=== PATIENT | male | born 1980 | race African-American/Black ===

== ENCOUNTER 2016-06-01 15:13 | Inpatient (IN) | payer SELFPAY ==
[~2016-06-01] VITALS: Ht 180.3 cm; Wt 70.0 kg
[~2016-06-01 15:13] MED LIST: BACT800T5 PO; IBUP-232 PO
[2016-06-01] MEDS ORDERED: SODIUM CHLOR 0.9% 1000 ML INJ 1,000 ML IV SCH (15:20)
[2016-06-01] MEDS ORDERED: SODIUM CHLORIDE 0.9% FLUSH 5 ML FLUSH IVF PRN (15:30)
[2016-06-01] MEDS ORDERED: ONDANSETRON HCL 4 MG/2 ML VIAL IVP ONE (15:30)
[2016-06-01] MEDS ORDERED: MORPHINE SULFATE 4 MG/ML INJ IV PUSH ONE (15:30)
--- NOTE | 2016-06-01 15:31 | PD ---
HPI . Syncope Chief Complaint: Syncope Time Seen by Provider: 15:14 Travel History International Travel<30 days: No Contact w/Intl Traveler<30days: No History of Present Illness HPI Patient presents stating that he passed out earlier today. He states that the shower and was using a heating pad on his left flank and the next thing he knew he was here. Patient reports a several month long history of left flank pain. He states that he has a stent in his left ureter that has been there for a couple months. He reports a 15 pound weight loss over the last couple of weeks, intermittent nausea and vomiting, occasional diarrhea and persistent left flank pain. He reports diaphoresis. He reports poor appetite. PFSH Past Medical History Asthma: Yes ( A CHILD) Cancer: No Cardiovascular Problems: No Diminished Hearing: No Endocrine: No Genitourinary: Yes (KIDNEY STONES) Immune Disorder: No Kidney Stones: Yes Musculoskeletal: No Neurologic: No Psychiatric: No Reproductive: No Respiratory: No Radiation Therapy: No Past Surgical History Body Medical Devices: Left renal stent. Genitourinary Surgery: Yes (left kidney stent Mar 2016) Other Surgery: Yes (kidney stones ) Social History Alcohol Use: Yes (SOCIALLY) Tobacco Use: No Substance Use: No Allergies-Medications (Allergen,Severity, Reaction): Coded Allergies: No Known Allergies (Verified , 05/21/16) Reported Meds & Prescriptions Reported Meds & Active Scripts Active Bactrim DS (Sulfamethoxazole-Trimethoprim) 800-160 Mg Tab 1 Tab PO BID Ibuprofen 600 Mg Tab 600 Mg PO Q6H PRN Review of Systems Except as stated in HPI: all other systems reviewed are Neg General / Constitutional: Positive: Other (diaphoresis, 15 pound weight loss.) HENT: Positive: Lightheadedness Cardiovascular: Positive: Syncope, No: Chest Pain or Discomfort Respiratory: No: Shortness of Breath Gastrointestinal: Positive: Nausea, Vomiting, Diarrhea, Abdominal Pain, Loss of Appetite Genitourinary: Positive: Dysuria, Flank Pain, Other (penile pain) Physical Exam Narrative GENERAL: Patient is lying on the stretcher on his right side rolled up in the position. He was acting as if he were hard to arouse. However, he subsequently took a cell phone call while I was examining him and carried on a conversation without any apparent difficulty. SKIN: Warm and dry. HEAD: Atraumatic. Normocephalic. EYES: Pupils equal and round. ENT: No nasal bleeding or discharge. Mucous membranes pink and moist. NECK: Trachea midline. CARDIOVASCULAR: Regular rate and rhythm. He does not seem to be tachycardic. RESPIRATORY: No accessory muscle use. His lungs are clear with full air movement throughout. GASTROINTESTINAL: Abdomen soft. nondistended. He reports diffuse tenderness to palpation. I am unable to elicit any CVA tenderness. MUSCULOSKELETAL: No obvious deformities. No edema. NEUROLOGICAL: Awake and alert. No obvious cranial nerve deficits. Motor grossly within normal limits. Normal speech. PSYCHIATRIC: Appropriate mood and affect; insight and judgment normal. Data Data Last Documented VS Vital Signs Date Time Temp Pulse Resp B/P Pulse Ox O2 Delivery O2 Flow Rate FiO2 06/01/16 15:34 98.1 61 16 132/68 100 Orders Complete Blood Count With Diff (06/01/16 15:20) Comprehensive Metabolic Panel (06/01/16 15:20) Lipase (06/01/16 15:20) Lactic Acid (06/01/16 15:20) Urinalysis - C+S If Indicated (06/01/16 15:20) Ct Abd/Pel W/O Iv Contrast (06/01/16 15:20) Iv Access Insert/Monitor (06/01/16 15:20) Ecg Monitoring (06/01/16 15:20) Oximetry (06/01/16 15:20) Morphine Inj (Morphine Inj) (06/01/16 15:30) Ondansetron Inj (Zofran Inj) (06/01/16 15:30) Sodium Chlor 0.9% 1000 Ml Inj (Ns 1000 M (06/01/16 15:20) Sodium Chloride 0.9% Flush (Ns Flush) (06/01/16 15:30) Hydromorphone Pf Inj (Dilaudid Pf Inj) (06/01/16 17:45) Sodium Chlor 0.9% 1000 Ml Inj (Ns 1000 M (06/01/16 17:45) Urine Culture (06/01/16 17:42) Urine Culture (06/01/16 18:25) Ceftriaxone Inj (Rocephin Inj) (06/01/16 18:30) Admit Order (Ed Use Only) (06/01/16 18:39) Labs Laboratory Tests Test 06/01/16 06/01/16 15:55 17:42 White Blood Count 9.2 TH/MM3 Red Blood Count 4.59 MIL/MM3 Hemoglobin 14.5 GM/DL Hematocrit 42.9 % Mean Corpuscular Volume 93.6 FL Mean Corpuscular Hemoglobin 31.5 PG Mean Corpuscular Hemoglobin 33.7 % Concent Red Cell Distribution Width 13.6 % Platelet Count 235 TH/MM3 Mean Platelet Volume 8.8 FL Neutrophils (%) (Auto) 84.1 % Lymphocytes (%) (Auto) 10.5 % Monocytes (%) (Auto) 4.5 % Eosinophils (%) (Auto) 0.4 % Basophils (%) (Auto) 0.5 % Neutrophils # (Auto) 7.8 TH/MM3 Lymphocytes # (Auto) 1.0 TH/MM3 Monocytes # (Auto) 0.4 TH/MM3 Eosinophils # (Auto) 0.0 TH/MM3 Basophils # (Auto) 0.0 TH/MM3 CBC Comment DIFF FINAL Differential Comment Sodium Level 139 MEQ/L Potassium Level 4.7 MEQ/L Chloride Level 105 MEQ/L Carbon Dioxide Level 26.5 MEQ/L Anion Gap 8 MEQ/L Blood Urea Nitrogen 18 MG/DL Creatinine 1.21 MG/DL Estimat Glomerular Filtration 83 ML/MIN Rate Random Glucose 95 MG/DL Lactic Acid Level 1.1 mmol/L Calcium Level 10.0 MG/DL Total Bilirubin 1.2 MG/DL Aspartate Amino Transf 9 U/L (AST/SGOT) Alanine Aminotransferase 18 U/L (ALT/SGPT) Alkaline Phosphatase 74 U/L Total Protein 7.8 GM/DL Albumin 4.3 GM/DL Lipase 68 U/L Urine Color YELLOW Urine Turbidity HAZY Urine pH 7.0 Urine Specific [place] 1.014 Urine Protein TRACE mg/dL Urine Glucose (UA) NEG mg/dL Urine Ketones 10 mg/dL Urine Occult Blood MOD Urine Nitrite NEG Urine Bilirubin NEG Urine Urobilinogen LESS THAN 2.0 MG/DL Urine Leukocyte Esterase LARGE Urine RBC /hpf Urine WBC 48 /hpf Urine WBC Clumps RARE Urine Squamous Epithelial <1 /hpf Cells Urine Bacteria RARE /hpf Urine Mucus FEW /lpf Microscopic Urinalysis Comment CULTURE INDICATED MDM Medical Decision Making Medical Screen Exam Complete: Yes Emergency Medical Condition: Yes Medical Record Reviewed: Yes (records reviewed. Patient has been seen here several times in the recent past with issues related to kidney stones. He has a stent in his left ureter. He has failed to follow up with urology for removal of the stent. He was actually admitted to the hospital on for this.. He had plain films done at that time it did not show a stone. He did have tract infection which was treated with Rocephin in the hospital. He was discharged on Cipro.) Differential Diagnosis Differential diagnosis of flank pain includes but is not limited to kidney stone , pyelonephritis, musculoskeletal pain, PE Narrative Course Patient presents with recurrent left flank pain. Today, he reports a prolonged syncopal event. He further reports significant weight loss and inability to keep down food or liquids. He will be given 2 L of fluid while awaiting his workup. 4:20 PM History shows stent in place. He actually has several stones in the stent 3 mm. Furthermore, he has a cluster of stones in the lower pole left kidney. 5:18 PM CBC is normal. Lactic acid is 1.1. 6:26 PM UA is positive for infection. Urine culture is pending. I have ordered Rocephin. I will consult the hospitalist for admission. Diagnosis Primary Impression: UTI (urinary tract infection) Qualified Code: N39.0 - Urinary tract infection without hematuria, site unspecified Additional Impression: Renal calculi Admitting Information Admitting Physician Requests: Admit Patient Instructions: Narcotic given in the ED Condition: Stable Lorelei Thibodeaux MD Jun 01, 2016 15:31
[2016-06-01 15:34] VITALS: BP 132/68; PULSE 61; RESP 16; TEMP 98.1; O2SAT 100
--- NOTE | 2016-06-01 16:09 | RADRPT ---
EXAM DATE/TIME: 06/01/2016 15:38 [facility] COMPARISON: CT ABDOMEN & PELVIS W/O CONTRAST, May 17, 2016, 0:25. INDICATIONS : Persistent left flank pain. ORAL CONTRAST: No oral contrast ingested. RADIATION DOSE: 8.97 CTDIvol (mGy) MEDICAL HISTORY : Renal calculi. SURGICAL HISTORY : Left renal stent. ENCOUNTER: Initial ACUITY: 2 days PAIN SCALE: 7/10 LOCATION: Left flank TECHNIQUE: Volumetric scanning of the abdomen and pelvis was performed. Using automated exposure control and ad justment of the mA and/or kV according to patient size, radiation dose was kept as low as reasonably achievable to obtain optimal diagnostic quality images. FINDINGS: LOWER LUNGS: The visualized lower lungs are clear. LIVER: Homogeneous density without lesion. There is no dilation of the biliary tree. No calcified gallston es. SPLEEN: Normal size without lesion. PANCREAS: Within normal limits. KIDNEYS: There is no mass, stone, or hydronephrosis on the right. Left-sided double J stent in the left colle ting system. There are 3 calculi along the mid stent measuring 2-3 mm seen at L4 level. There is mild prominence of the left collecting system in spite of the stent. There are several clustered calculi lower pole left kidney measuring 2-6 mm in size. ADRENAL GLANDS: Within normal limits. VASCULAR: There is no aortic aneurysm. BOWEL/MESENTERY: The stomach, small bowel, and colon demonstrate no acute abnormality. There is no free intraperitone al air or fluid. ABDOMINAL WALL: Within normal limits. RETROPERITONEUM: There is no lymphadenopathy. BLADDER: No wall thickening or mass. REPRODUCTIVE: Within normal limits. INGUINAL: There is no lymphadenopathy or hernia. MUSCULOSKELETAL: Within normal limits for patient age. CONCLUSION: 1. Mild prominence of the left collecting system even though there is a stent in place. 2. Several calculi seen along the left nephroureteral stent measuring 2-3 mm. 3. Nonobstructing clustered calculi lower pole left kidney measures 2-6 mm in size. 1. Vitor Mcgowan MD on June 01, 2016 at 16:03 Board Certified Radiologist. This report was verified electronically.
[2016-06-01 16:53] LABS: AUTOMATED NEUTROPHIL # 7.8 TH/MM3 (1.8-7.7); BASOPHIL % 0.5 % (0.0-2.0); EOSINOPHIL % 0.4 % (0.0-4.0); HEMATOCRIT 42.9 % (39.0-51.0); HEMO FLAGS DIFF FINAL; LYMPH % 10.5 % (9.0-44.0); MEAN CELL VOLUME 93.6 FL (80.0-100.0); MEAN CORPUSCULAR HEMOGLOBIN 31.5 PG (27.0-34.0); MEAN CORPUSCULAR HGB CONC 33.7 % (32.0-36.0); MONO % 4.5 % (0.0-8.0); NEUT % 84.1 % (16.0-70.0); PLATELET COUNT 235 TH/MM3 (150-450); RED BLOOD COUNT 4.59 MIL/MM3 (4.50-5.90); RED CELL DISTRIBUTION WIDTH 13.6 % (11.6-17.2); WHITE BLOOD COUNT 9.2 TH/MM3 (4.0-11.0)
[2016-06-01 17:26] LABS: ANION GAP 8 MEQ/L (5-15); AST (GOT) 9 U/L (15-37); BICARBONATE 26.5 MEQ/L (21.0-32.0); BLOOD UREA NITROGEN 18 MG/DL (7-18); CHLORIDE 105 MEQ/L (98-107); GLOMERULAR FILTRATION RATE 83 ML/MIN (>89); POTASSIUM 4.7 MEQ/L (3.5-5.1); SODIUM (NA) 139 MEQ/L (136-145)
[2016-06-01 17:32] LABS: ALKALINE PHOSPHATASE 74 U/L (45-117); ALT (GPT) 18 U/L (12-78); TOTAL BILIRUBIN ADULT 1.2 MG/DL (0.2-1.0)
[2016-06-01] MEDS ORDERED: HYDROmorphone HCL PF 2 MG/ML VIAL IV PUSH ONE (17:45)
[2016-06-01] MEDS ORDERED: SODIUM CHLOR 0.9% 1000 ML INJ 1,000 ML IV ONE (17:45)
[2016-06-01 18:18] LABS: BLOOD, URINE MOD (NEG); COMMENT (UR) CULTURE INDICATED; CULTURE IF INDICATED CULTURE INDICATED; GLUCOSE,URINE NEG (NEG); KETONE, URINE 10 mg/dL (NEG); MUCUS URINE FEW /lpf (OCC); NITRITE,URINE NEG (NEG); SQUAMOUS EPITHELIAL CELL URINE <1 /hpf (0-5); URINE COLOR YELLOW (YELLW/STRAW)
[2016-06-01 18:22] LABS: BACTERIA, URINE RARE /hpf
[2016-06-01] MEDS ORDERED: cefTRIAXone INJ 1,000 MG in SODIUM CHLORIDE 0.9% INJ 100 ML IV ONE (18:30)
[2016-06-01] MEDS ORDERED: MAGNESIUM HYDROXIDE SUSP 30 ML CUP PO PRN (18:45)
[2016-06-01] MEDS ORDERED: oxyCODONE/ACETAMINOPHEN 5 MG/325 MG TAB PO PRN (18:45)
[2016-06-01] MEDS ORDERED: SODIUM CHLORIDE 0.9% FLUSH 5 ML FLUSH FLUSH PRN (18:45)
[2016-06-01] MEDS ORDERED: NALOXONE HCL 0.4 MG/ML AMP IV PRN (18:45)
[2016-06-01] MEDS ORDERED: ACETAMINOPHEN 325 MG TAB PO PRN (18:45)
[2016-06-01] MEDS ORDERED: HYDROmorphone HCL PF 2 MG/ML VIAL IV PUSH PRN (18:45)
[2016-06-01] MEDS ORDERED: KETOROLAC TROMETHAMINE 30 MG/ML (IVP) VIAL IV PUSH ONE (19:30)
--- NOTE | 2016-06-01 19:53 | HHI.HP ---
HPI Service [facility] Hospitalists Primary Care Physician No Primary Care Physician Admission Diagnosis polynephritis and renal calculi Diagnoses: Chief Complaint: flank pain , syncope Travel History International Travel<30 Days: No Contact w/Intl Traveler <30 Da: No Traveled to Known Affected Are: No History of Present Illness 35-year-old male status post stent in the left kidney around 03/2016 for recurrent kidney stones who presents with intractable nausea, pain, burning on urination for the last 2-3 days. The patient had a left stent placed for kidney stone at [place]; he was to follow-up with a urologist, but he has not done this. Around one week ago, he was having similar symptoms as today. He was seen at the [facility]. He was given Macrobid and ibuprofen. Additionally, a mandatory referral was placed for the patient to follow with a urologist. He was unable to do this. He has not finished his Macrobid medication. Since last week, he has been "feeling bad". He complains of stomach pain, nausea, vomiting, left-sided flank pain, burning on urination. He states the pain is "sharp 10 out of 10"in his belly. Does have left flank pain. Patient experienced prolonged syncopal episode today and came to the ED for further eval. Review of Systems Constitutional: DENIES: Fever, Chills, Change in appetite Endocrine: DENIES: Heat/cold intolerance Eyes: DENIES: Blurred vision, Eye pain Ears, nose, mouth, throat: DENIES: Tinnitus, Hearing loss, Vertigo, Nasal discharge, Oral lesions, Throat pain, Hoarseness, Ear Pain, Running Nose, Epistaxis, Sinus Pain, Toothache, Odynophagia Respiratory: DENIES: Apneas, Cough, Snoring, Wheezing, Hemoptysis, Sputum production, Shortness of breath Cardiovascular: DENIES: Chest pain, Palpitations, Syncope, Dyspnea on Exertion , PND, Lower Extremity Edema, Orthopnea, Claudication Gastrointestinal: DENIES: Abdominal pain, Black stools, Bloody stools, Constipation, Diarrhea, Nausea, Vomiting, Difficulty Swallowing, Anorexia Genitourinary: COMPLAINS OF: Urgency, Dysuria Musculoskeletal: DENIES: Joint pain Integumentary: DENIES: Rash Neurologic: DENIES: Abnormal gait, Headache, Localized weakness, Paresthesias, Seizures, Speech Problems, Tremor, Poor Balance Psychiatric: DENIES: Anxiety, Depression Past Family Social History Past Medical History Kidney stones Past Surgical History Kidney stent on left Reported Medications Last Impressions Abdomen/Pelvis CT 06/01/16 1520 Signed Impressions: Service Date/Time: May 15:38 - CONCLUSION: 1. Mild prominence of the left collecting system even though there is a stent in place. 2. Several calculi seen along the left nephroureteral stent measuring 2-3 mm. 3. Nonobstructing clustered calculi lower pole left kidney measures 2-6 mm in size. 1. Vitor Mcgowan MD Allergies: Coded Allergies: No Known Allergies (Verified , 05/21/16) Family History Adopted Social History Tobacco: never Marijuana: almost daily Alcohol: none Other illicit drugs: none Physical Exam Vital Signs Vital Signs Date Time Temp Pulse Resp B/P Pulse Ox O2 Delivery O2 Flow Rate FiO2 06/01/16 15:34 98.1 61 16 132/68 100 Physical Exam GENERAL: This is a well-nourished, well-developed patient, in no apparent distress. SKIN: No rashes, ecchymoses or lesions. Cool and dry. HEAD: Atraumatic. Normocephalic. No temporal or scalp tenderness. EYES: Pupils equal round and reactive. Extraocular motions intact. No scleral icterus. No injection or drainage. ENT: Nose without bleeding, purulent drainage or septal hematoma. Throat without erythema, tonsillar hypertrophy or exudate. Uvula midline. Airway patent. NECK: Trachea midline. No JVD or lymphadenopathy. Supple, nontender, no meningeal signs. CARDIOVASCULAR: Regular rate and rhythm without murmurs, gallops, or rubs. RESPIRATORY: Clear to auscultation. Breath sounds equal bilaterally. No wheezes , rales, or rhonchi. GASTROINTESTINAL: Abdomen soft, tender over the lower quadrant, nondistended. No hepato-splenomegaly, or palpable masses. No guarding. MUSCULOSKELETAL: Extremities without clubbing, cyanosis, or edema. No joint tenderness, effusion, or edema noted. No calf tenderness. Negative Homans sign bilaterally. NEUROLOGICAL: Awake and alert. Cranial nerves II through XII intact. Motor and sensory grossly within normal limits. Five out of 5 muscle strength in all muscle groups. Normal speech. Laboratory Laboratory Tests Test 06/01/16 06/01/16 15:55 17:42 White Blood Count 9.2 Red Blood Count 4.59 Hemoglobin 14.5 Hematocrit 42.9 Mean Corpuscular Volume 93.6 Mean Corpuscular Hemoglobin 31.5 Mean Corpuscular Hemoglobin 33.7 Concent Red Cell Distribution Width 13.6 Platelet Count 235 Mean Platelet Volume 8.8 Neutrophils (%) (Auto) 84.1 Lymphocytes (%) (Auto) 10.5 Monocytes (%) (Auto) 4.5 Eosinophils (%) (Auto) 0.4 Basophils (%) (Auto) 0.5 Neutrophils # (Auto) 7.8 Lymphocytes # (Auto) 1.0 Monocytes # (Auto) 0.4 Eosinophils # (Auto) 0.0 Basophils # (Auto) 0.0 CBC Comment DIFF FINAL Differential Comment Sodium Level 139 Potassium Level 4.7 Chloride Level 105 Carbon Dioxide Level 26.5 Anion Gap 8 Blood Urea Nitrogen 18 Creatinine 1.21 Estimat Glomerular Filtration 83 Rate Random Glucose 95 Lactic Acid Level 1.1 Calcium Level 10.0 Total Bilirubin 1.2 Aspartate Amino Transf 9 (AST/SGOT) Alanine Aminotransferase 18 (ALT/SGPT) Alkaline Phosphatase 74 Total Protein 7.8 Albumin 4.3 Lipase 68 Urine Color YELLOW Urine Turbidity HAZY Urine pH 7.0 Urine Specific [place] 1.014 Urine Protein TRACE Urine Glucose (UA) NEG Urine Ketones 10 Urine Occult Blood MOD Urine Nitrite NEG Urine Bilirubin NEG Urine Urobilinogen LESS THAN 2.0 Urine Leukocyte Esterase LARGE Urine RBC Urine WBC 48 Urine WBC Clumps RARE Urine Squamous Epithelial <1 Cells Urine Bacteria RARE Urine Mucus FEW Microscopic Urinalysis Comment CULTURE INDICATED Date/Time Procedure Status Source Growth 06/01/16 17:42 Urine Culture Received Urine Clean Catch Pending Result Diagram: 06/01/16 1555 06/01/16 1555 Imaging Last Impressions Abdomen/Pelvis CT 06/01/16 1520 Signed Impressions: Service Date/Time: May 15:38 - CONCLUSION: 1. Mild prominence of the left collecting system even though there is a stent in place. 2. Several calculi seen along the left nephroureteral stent measuring 2-3 mm. 3. Nonobstructing clustered calculi lower pole left kidney measures 2-6 mm in size. 1. Vitor Mcgowan MD Assessment and Plan Assessment and Plan 35-year-old with history of stent on the left kidney presents with a urinary tract infection and recurrent flank pain, syncope, nausea/vomiting, weight loss - failure to thrive: UTI (urinary tract infection) UA with signs of UTI. Patient has failed outpatient. He does not currently have any systemic symptoms: No fever, no SIRS criteria. -Cultures pending (likely negative given antibiotic as outpatient) -Start Rocephin 1 g every 24 -IVF -Pain control -Zofran for nausea Recurrent left flank pain Prolonged syncopal event. Failure to thrive with significant weight loss and inability to keep down food or liquids. Nephrolithiasis. Stones in the stent 3 mm. Cluster of stones in the lower pole left kidney. CT abd/pelvis reviewed 1. Mild prominence of the left collecting system even though there is a stent in place. 2. Several calculi seen along the left nephroureteral stent measuring 2-3 mm. 3. Nonobstructing clustered calculi lower pole left kidney measures 2-6 mm in size. IVF Will consult urology Add ensure to diet, consult carbon lamp cleaner Antiemetics, stool softeners/laxatives Pain meds per pain scale DVT ppx SCD/teds Code Status full Discussed Condition With patient,. nurse. ED physician Physician Certification 2 Midnight Certification Type: Admission for Inpatient Services Order for Inpatient Services The services are ordered in accordance with Medicare regulations or non- Medicare payer requirements, as applicable. In the case of services not specified as inpatient-only, they are appropriately provided as inpatient services in accordance with the 2-midnight benchmark. Estimated LOS (days): 3 days is the estimated time the patient will need to remain in the hospital, assuming treatment plan goals are met and no additional complications. Post-Hospital Plan: Home Yojana Harrington MD Jun 01, 2016 19:53
[2016-06-01] MEDS ORDERED: TEMAZEPAM 15 MG CAP PO PRN (21:00)
[2016-06-01] MEDS: SODIUM CHLOR 0.9% 1000 ML INJ 1,000 ML IV SCH (21:34)
[2016-06-01] MEDS: SODIUM CHLORIDE 0.9% FLUSH 5 ML FLUSH FLUSH SCH (21:35)
[2016-06-02] VITALS (10 sets, daily range): BP systolic 93–136; BP diastolic 54–93; PULSE 52–90; RESP 12–18; TEMP 97.3–98.4; O2SAT 94–100
[2016-06-02] MEDS ORDERED: HYDROmorphone HCL 2 MG TAB PO PRN (01:15)
[2016-06-02] MEDS ORDERED: NALOXONE HCL 0.4 MG/ML AMP IV PRN (01:15)
[2016-06-02] MEDS ORDERED: ACETAMINOPHEN/HYDROcodone 325 MG/5 MG TAB PO PRN (01:15)
[2016-06-02] MEDS: HYDROmorphone HCL PF 1 MG/ML VIAL IV PRN ×7 (02:34→22:28)
[2016-06-02] MEDS: SODIUM CHLOR 0.9% 1000 ML INJ 1,000 ML IV SCH ×3 (04:00→20:00)
[2016-06-02] MEDS: HYDROmorphone HCL 2 MG TAB PO PRN ×3 (04:21→17:51)
[2016-06-02 06:16] LABS: AUTOMATED NEUTROPHIL # 3.7 TH/MM3 (1.8-7.7); BASOPHIL # 0.1 TH/MM3 (0-0.2); BASOPHIL % 0.8 % (0.0-2.0); EOSINOPHIL # 0.2 TH/MM3 (0-0.4); EOSINOPHIL % 2.5 % (0.0-4.0); HEMATOCRIT 36.4 % (39.0-51.0); HEMO FLAGS DIFF FINAL; LYMPH % 36.7 % (9.0-44.0); LYMPHOCYTE # 2.7 TH/MM3 (1.0-4.8); MEAN CELL VOLUME 93.7 FL (80.0-100.0); MEAN CORPUSCULAR HEMOGLOBIN 31.3 PG (27.0-34.0); MEAN CORPUSCULAR HGB CONC 33.4 % (32.0-36.0); MONO % 8.7 % (0.0-8.0); NEUT % 51.3 % (16.0-70.0); PLATELET COUNT 205 TH/MM3 (150-450); RED BLOOD COUNT 3.89 MIL/MM3 (4.50-5.90); RED CELL DISTRIBUTION WIDTH 13.3 % (11.6-17.2); WHITE BLOOD COUNT 7.2 TH/MM3 (4.0-11.0)
[2016-06-02 06:35] LABS: BICARBONATE 26.2 MEQ/L (21.0-32.0)
[2016-06-02] MEDS: ONDANSETRON HCL 4 MG/2 ML VIAL IVP PRN ×2 (08:55→19:51)
[2016-06-02] MEDS: SODIUM CHLORIDE 0.9% FLUSH 5 ML FLUSH FLUSH SCH ×2 (09:09→21:00)
[2016-06-02] MEDS: ACETAMINOPHEN/HYDROcodone 325 MG/10 MG TAB PO PRN ×2 (11:25→19:56)
[2016-06-02] MEDS: cefTRIAXone INJ 1,000 MG in SODIUM CHLORIDE 0.9% INJ 100 ML IV SCH (11:25)
--- NOTE | 2016-06-02 11:45 | HHI.PR ---
Subjective Remarks Patient reports that he continues to have a left flank pain. He is voiding okay. No fevers. Objective Vitals Vital Signs Date Time Temp Pulse Resp B/P Pulse Ox O2 Delivery O2 Flow Rate FiO2 06/02/16 08:14 98.4 52 18 122/72 98 06/02/16 03:50 98.2 61 18 129/69 95 06/02/16 02:04 90 12 130/58 98 Room Air 06/02/16 00:32 88 14 128/60 99 Room Air 06/01/16 15:34 98.1 61 16 132/68 100 I/O 06/01/16 06/01/16 06/01/16 06/02/16 06/02/16 06/02/16 07:00 15:00 23:00 07:00 15:00 23:00 Intake Total 240 ml Output Total 100 ml Balance 140 ml Intake Oral 240 ml Output Urine Total 100 ml Result Diagram: 06/02/1652106/02/16521 Objective Remarks GENERAL: This is a well-nourished, well-developed patient, in no apparent distress. CARDIOVASCULAR: Normal rate and regular rhythm without murmurs, gallops, or rubs. RESPIRATORY: Good respiratory efforts. Breath sounds equal and clear to auscultation bilaterally. GASTROINTESTINAL: Abdomen soft, non-tender, non-distended. Normal active bowel sounds : Patient endorsed flank pain. Positive left CVA tenderness. MUSCULOSKELETAL: Extremities without cyanosis, or edema. NEURO: Alert & Oriented x4 to person, place, time, situation. Moves all ext x4 PSYCH: Appropriate mood and affect. A/P Assessment and Plan 35-year-old male with history of nephrolithiasis and stent placement. Failed to follow up with urology outpatient. He presented with recurrent flank pain, possible UTI. Possible complicated UTI: Abnormal urinalysis in the setting of ureteral stent and nephrolithiasis. - Continue Rocephin. Follow urine cultures. Nephrolithiasis: Stones in the stent 3 mm. Cluster of stones in the lower pole left kidney. Patient apparently had stent placement about a month ago in [place]. He did not follow up outpatient. He presented to the emergency room here about a week ago and was referred again to outpatient urology but he did not follow up. -Urology consulted for assistance - Continue supportive care with IV fluid. Pain control. Antiemetics as needed. GI prophylaxis: Stool softener PRN constipation. DVT PPx: SCDs. Katey Adler MD Jun 02, 2016 11:45
--- NOTE | 2016-06-02 17:10 | PD.CONS ---
HPI Service Urology Consult Requested By Reason for Consult Nephroltihiasis with stent Primary Care Physician No Primary Care Physician Diagnosis: History of Present Illness 35 yo male with history of nephrolithiasis admitted for left flank pain with indwelling ureteral stent in place and stones noted adjacent to stent on CT scan. Patient had the stent placed about 1 month ago in [place] after a procedure to treat his stone disease. He has since experienced persistent pain and infections per the patient. He also reports hematuria. He now lives in the [facility] and has not followed up with Urology yet. He is currently on Antibiotics for suspected UTI. CT scan identifies the stent to be in good position with stones adjacent to the stent Review of Systems ROS Limitations: Clinical Condition Constitutional: DENIES: Fever Endocrine: DENIES: Heat/cold intolerance Eyes: DENIES: Vision loss Ears, nose, mouth, throat: DENIES: Hearing loss Respiratory: DENIES: Apneas, Cough Cardiovascular: DENIES: Chest pain Gastrointestinal: COMPLAINS OF: Abdominal pain Genitourinary: COMPLAINS OF: Hematuria, Dysuria Integumentary: DENIES: Rash Hematologic/lymphatic: DENIES: Bruising Immunologic/allergic: DENIES: Urticaria Neurologic: DENIES: Headache Psychiatric: DENIES: Anxiety Past Family Social History Past Medical History Nephrolithiasis Past Surgical History Ureteral stent Lithotripsy Reported Medications Reported Meds & Active Scripts Active Bactrim DS (Sulfamethoxazole-Trimethoprim) 800-160 Mg Tab 1 Tab PO BID Ibuprofen 600 Mg Tab 600 Mg PO Q6H PRN Allergies: Coded Allergies: No Known Allergies (Verified , 05/21/16) Active Ordered Medications Current Medications Medications (Trade) Dose Ordered Sig/Roz Route Start Time Stop Time Status Last Admin (NS 1000 ml Inj) 1,000 ml @ 125 mls/hr Q8H IV 06/01/16 20:00 06/02/16 11:26 (NS Flush) 2 ml UNSCH PRN FLUSH 06/01/16 18:45 (NS Flush) 2 ml BID FLUSH 06/01/16 21:00 06/02/16 09:09 (Tylenol) 650 mg Q4H PRN PO 06/01/16 18:45 (Zofran Inj) 4 mg Q6H PRN IVP 06/01/16 18:45 06/02/16 08:55 (Milk Of Magnesia Liq) 30 ml Q12H PRN PO 06/01/16 18:45 Temazepam 15 mg 15 mg HS PRN PO 06/01/16 21:00 (Rocephin Inj/NS Inj) 100 ml @ 200 mls/hr Q24H IV 06/02/16 11:00 06/02/16 11:25 (Wylie 5-325 Mg) 1 tab Q4H PRN PO 06/02/16 01:15 (Wylie 10-325 Mg) 1 tab Q4H PRN PO 06/02/16 01:15 06/02/16 11:25 (Dilaudid Pf Inj) 1 mg Q3H PRN IV 06/02/16 01:15 06/02/16 18:33 (Dilaudid) 1 mg Q4H PRN PO 06/02/16 01:15 (Dilaudid) 2 mg Q4H PRN PO 06/02/16 01:15 06/02/16 17:51 (Narcan Inj) 0.4 mg UNSCH PRN IV 06/02/16 01:15 Family History Reviewed an noncontributory to present illness as he is adopted Social History Tobacco: never Marijuana: almost daily Alcohol: none Other illicit drugs: none Physical Exam Vital Signs Vital Signs Date Time Temp Pulse Resp B/P Pulse Ox O2 Delivery O2 Flow Rate FiO2 06/02/16 15:30 98.3 73 16 126/81 99 06/02/16 12:58 54 97 06/02/16 12:51 98.3 136/77 06/02/16 08:14 98.4 52 18 122/72 98 06/02/16 03:50 98.2 61 18 129/69 95 06/02/16 02:04 90 12 130/58 98 Room Air 06/02/16 00:32 88 14 128/60 99 Room Air Physical Exam GENERAL: This is a well-nourished, well-developed patient, in no apparent distress. SKIN: No rashes, ecchymoses or lesions. Cool and dry. HEAD: Atraumatic. Normocephalic. EYES: Extraocular motions intact. No scleral icterus. No injection or drainage. ENT: Nose without bleeding, purulent drainage. Airway patent. NECK: Trachea midline. CARDIOVASCULAR: Normal pulses, no edema RESPIRATORY: Nonlabored respiration. GASTROINTESTINAL: Abdomen soft, non-tender, nondistended. MUSCULOSKELETAL: Extremities without clubbing, cyanosis, or edema. . NEUROLOGICAL: Awake and alert.Motor and sensory grossly within normal limits. Normal speech. Laboratory Laboratory Tests Test 06/01/16 06/02/16 17:42 05:22 Urine Color YELLOW Urine Turbidity HAZY Urine pH 7.0 Urine Specific [place] 1.014 Urine Protein TRACE Urine Glucose (UA) NEG Urine Ketones 10 Urine Occult Blood MOD Urine Nitrite NEG Urine Bilirubin NEG Urine Urobilinogen LESS THAN 2.0 Urine Leukocyte Esterase LARGE Urine RBC Urine WBC 48 Urine WBC Clumps RARE Urine Squamous Epithelial <1 Cells Urine Bacteria RARE Urine Mucus FEW Microscopic Urinalysis Comment CULTURE INDICATED White Blood Count 7.2 Red Blood Count 3.89 Hemoglobin 12.1 Hematocrit 36.4 Mean Corpuscular Volume 93.7 Mean Corpuscular Hemoglobin 31.3 Mean Corpuscular Hemoglobin 33.4 Concent Red Cell Distribution Width 13.3 Platelet Count 205 Mean Platelet Volume 8.9 Neutrophils (%) (Auto) 51.3 Lymphocytes (%) (Auto) 36.7 Monocytes (%) (Auto) 8.7 Eosinophils (%) (Auto) 2.5 Basophils (%) (Auto) 0.8 Neutrophils # (Auto) 3.7 Lymphocytes # (Auto) 2.7 Monocytes # (Auto) 0.6 Eosinophils # (Auto) 0.2 Basophils # (Auto) 0.1 CBC Comment DIFF FINAL Differential Comment Sodium Level 143 Potassium Level 4.0 Chloride Level 110 Carbon Dioxide Level 26.2 Anion Gap 7 Blood Urea Nitrogen 19 Creatinine 1.00 Estimat Glomerular Filtration 103 Rate Random Glucose 92 Calcium Level 9.5 Date/Time Procedure Status Source Growth 06/01/16 17:42 Urine Culture - Preliminary Resulted Urine Clean Catch NO GROWTH IN 24 HOURS. Result Diagram: 06/02/1652106/02/16521 Imaging Last 48 hours Impressions Abdomen/Pelvis CT 06/01/16 1520 Signed Impressions: Service Date/Time: May 15:38 - CONCLUSION: 1. Mild prominence of the left collecting system even though there is a stent in place. 2. Several calculi seen along the left nephroureteral stent measuring 2-3 mm. 3. Nonobstructing clustered calculi lower pole left kidney measures 2-6 mm in size. 1. Vitor Mcgowan MD Assessment and Plan Problem List: (1) Renal calculi ICD Code: N20.0 Status: Acute Assessment and Plan Discussed with the patient his current clinical status and the need for follow- up to treat his remaining stone burden and stent removal. Patient understands follow-up is necessary. Card provided with office number and instructed to call today to male appointment for next week. Recommend continued treatment for his UTI at this time with close urology follow-up. No acute urological intervention indicated at this time as the stent is in proper position on Ct scan. Please call with questions. Bon Hanks MD Jun 02, 2016 17:10
[2016-06-02] MEDS ORDERED: KETOROLAC TROMETHAMINE 30 MG/ML (IVP) VIAL IV PUSH ONE (20:45)
[2016-06-03] VITALS: BP 112/62; PULSE 57; RESP 16; TEMP 97.4; O2SAT 98
[2016-06-03] MEDS: HYDROmorphone HCL 2 MG TAB PO PRN ×4 (00:08→12:50)
[2016-06-03] MEDS: HYDROmorphone HCL PF 1 MG/ML VIAL IV PRN ×3 (01:18→10:21)
[2016-06-03] MEDS: ACETAMINOPHEN/HYDROcodone 325 MG/10 MG TAB PO PRN ×2 (02:49→09:16)
[2016-06-03 04:00] VITALS: BP 103/62; PULSE 59; RESP 16; TEMP 96.6; O2SAT 99
[2016-06-03] MEDS: ONDANSETRON HCL 4 MG/2 ML VIAL IVP PRN ×2 (05:16→12:16)
[2016-06-03] MEDS: SODIUM CHLOR 0.9% 1000 ML INJ 1,000 ML IV SCH ×2 (05:30→12:00)
[2016-06-03 08:08] LABS: HEMATOCRIT 35.6 % (39.0-51.0); MEAN CELL VOLUME 94.4 FL (80.0-100.0); MEAN CORPUSCULAR HEMOGLOBIN 31.4 PG (27.0-34.0); MEAN CORPUSCULAR HGB CONC 33.2 % (32.0-36.0); PLATELET COUNT 176 TH/MM3 (150-450); RED BLOOD COUNT 3.77 MIL/MM3 (4.50-5.90); RED CELL DISTRIBUTION WIDTH 13.2 % (11.6-17.2); REVIEW FLAG FINAL; WHITE BLOOD COUNT 5.1 TH/MM3 (4.0-11.0)
[2016-06-03 08:29] LABS: BICARBONATE 27.7 MEQ/L (21.0-32.0); POTASSIUM 4.2 MEQ/L (3.5-5.1)
[2016-06-03 09:00] VITALS: BP 94/55; PULSE 65; RESP 18; TEMP 96.4; O2SAT 99
[2016-06-03] MEDS: SODIUM CHLORIDE 0.9% FLUSH 5 ML FLUSH FLUSH SCH (09:16)
[2016-06-03] MEDS: cefTRIAXone INJ 1,000 MG in SODIUM CHLORIDE 0.9% INJ 100 ML IV SCH (10:21)
[2016-06-03 12:35] VITALS: BP 118/75; PULSE 66; RESP 16; TEMP 96.2; O2SAT 99
[2016-06-03 13:02] VITALS: BP 130/72; PULSE 74; RESP 18; TEMP 97.3; O2SAT 100
[2016-06-03] MEDS ORDERED: HYDR-3516 PO (13:39)
--- NOTE | 2016-06-03 13:42 | HHI.DCPOC ---
Discharge Care Plan Diagnosis: (1) Renal calculi (2) Kidney stone on left side (3) Hydronephrosis Goals to Promote Your Health * To prevent worsening of your condition and complications * To maintain your health at the optimal level Directions to Meet Your Goals Take your medications as prescribed Follow your dietary instruction Follow activity as directed Keep your appointments as scheduled Take your immunizations and boosters as scheduled If your symptoms worsen call your PCP, if no PCP go to Urgent Care Center or Emergency Room Smoking is Dangerous to Your Health. Avoid second hand smoke Call the 24-hour hour crisis hotline for domestic abuse at Katey Adler MD Jun 03, 2016 13:42
--- NOTE | 2016-06-03 13:43 | HHI.DS ---
Discharge Summary Admission Date Jun 01, 2016 at 18:41 Discharge Date: Jun 03, 2016 Admitting Diagnosis polynephritis and renal calculi (1) Kidney stone on left side ICD Code: N20.0 (2) Hydroureter on left ICD Code: N13.4 (3) UTI (urinary tract infection) ICD Code: N39.0 Procedures None Brief History - From Admission 35-year-old male status post stent in the left kidney around 03/2016 for recurrent kidney stones who presents with intractable nausea, pain, burning on urination for the last 2-3 days. The patient had a left stent placed for kidney stone at [place]; he was to follow-up with a urologist, but he has not done this. Around one week ago, he was having similar symptoms as today. He was seen at the [place] [facility]. He was given Macrobid and ibuprofen. Additionally, a mandatory referral was placed for the patient to follow with a urologist. He was unable to do this. He has not finished his Macrobid medication. Since last week, he has been "feeling bad". He complains of stomach pain, nausea, vomiting, left-sided flank pain, burning on urination. He states the pain is "sharp 10 out of 10"in his belly. Does have left flank pain. Patient experienced prolonged syncopal episode today and came to the ED for further eval. CBC/BMP: 06/03/16 0735 06/03/16 0735 Significant Findings Laboratory Tests Test 06/01/16 06/01/16 06/02/16 06/03/16 15:55 17:42 05:22 07:35 Neutrophils (%) (Auto) 84.1 % (16.0-70.0) Neutrophils # (Auto) 7.8 TH/MM3 (1.8-7.7) Estimat Glomerular Filtration 83 ML/MIN (>89) Rate Total Bilirubin 1.2 MG/DL (0.2-1.0) Aspartate Amino Transf 9 U/L (15-37) (AST/SGOT) Lipase 68 U/L (73-393) Urine Turbidity HAZY (CLEAR) Urine Ketones 10 mg/dL (NEG) Urine Occult Blood MOD (NEG) Urine Leukocyte Esterase LARGE (NEG) Urine WBC 48 /hpf (0-5) Urine WBC Clumps RARE (NONE) Urine Bacteria RARE /hpf (NONE) Urine Mucus FEW /lpf (OCC) Red Blood Count 3.89 MIL/MM3 3.77 MIL/MM3 (4.50-5.90) (4.50-5.90) Hemoglobin 12.1 GM/DL 11.8 GM/DL (13.0-17.0) (13.0-17.0) Hematocrit 36.4 % 35.6 % (39.0-51.0) (39.0-51.0) Monocytes (%) (Auto) 8.7 % (0.0-8.0) Chloride Level 110 MEQ/L 108 MEQ/L (98-107) (98-107) Blood Urea Nitrogen 19 MG/DL (7-18) Imaging Last Impressions Abdomen/Pelvis CT 06/01/16 1520 Signed Impressions: Service Date/Time: May 15:38 - CONCLUSION: 1. Mild prominence of the left collecting system even though there is a stent in place. 2. Several calculi seen along the left nephroureteral stent measuring 2-3 mm. 3. Nonobstructing clustered calculi lower pole left kidney measures 2-6 mm in size. 1. Vitor Mcgowan MD PE at Discharge GENERAL: This is a well-nourished, well-developed patient, in no apparent distress. CARDIOVASCULAR: Normal rate and regular rhythm without murmurs, gallops, or rubs. RESPIRATORY: Good respiratory efforts. Breath sounds equal and clear to auscultation bilaterally. GASTROINTESTINAL: Abdomen soft, non-tender, non-distended. Normal active bowel sounds : Patient endorsed flank pain. Positive left CVA tenderness. MUSCULOSKELETAL: Extremities without cyanosis, or edema. NEURO: Alert & Oriented x4 to person, place, time, situation. Moves all ext x4 PSYCH: Appropriate mood and affect. Pt update on day of discharge Patient reports that he is feeling better. Left flank pain has improved. He was evaluated by urology who advised outpatient follow-up. Hospital Course 35-year-old male with history of nephrolithiasis and stent placement. Failed to follow up with urology outpatient. He presented with recurrent flank pain, possible UTI. Evaluation and treatment course detailed below: Concern for complicated UTI: Abnormal urinalysis in the setting of ureteral stent and nephrolithiasis. The patient was treated with Rocephin. His urine culture was negative at 48 hours. Therefore antibiotics was discontinued. Nephrolithiasis: Stones in the stent 3 mm. Cluster of stones in the lower pole left kidney. Patient apparently had stent placement about a month ago in [place]. He did not follow up outpatient. He presented to the emergency room here about a week ago and was referred again to outpatient urology but he did not follow up. The patient was evaluated by urology who again advised outpatient follow-up. He is given all the information to make a follow-up appointment. The patient was counseled extensively on the need to follow up outpatient. Pt Condition on Discharge: Good Discharge Disposition: Discharge Home Discharge Time: <= 30 minutes Discharge Instructions DIET: Follow Instructions for: As Tolerated, No Restrictions Additional Diet Instructions: Drink plenty of fluid Activities you can perform: Regular-No Restrictions Follow up Referrals: Urology - 2-3 Days New Medications: Hydrocodone-Acetaminophen (Hydrocodone-Acetaminophen) 5-325 mg Tab 1 TAB PO Q4H PRN PAIN GREATER THAN 5 #15 TAB Discontinued Medications: Ibuprofen (Ibuprofen) 600 Mg Tab 600 MG PO Q6H PRN Pain/Inflammation #40 Ref 0 TAB Sulfamethoxazole-Trimethoprim (Bactrim DS) 800-160 Mg Tab 1 TAB PO BID Infection #14 Ref 0 TAB Katey Adler MD Jun 03, 2016 13:43
[2016-06-03 16:00] VITALS: BP 144/84; PULSE 70; RESP 8; TEMP 96.9; O2SAT 96
== END 2016-06-03 16:06 | disposition home or self-care (01) | DRG 694 ==
LOC: NEDAMB 15:13 → NEDA 18:41 → NEDH 06-02 00:59 → HOCB 06-02 18:25
PROVIDERS: ADMIT Family Medicine; ATTEND Family Medicine
DX: N20.0 Calculus of kidney (principal); N39.0 Urinary tract infection, site not specified; N13.4 Hydroureter; R55 Syncope and collapse; R62.7 Adult failure to thrive; R63.4 Abnormal weight loss; Z87.442 Personal history of urinary calculi
CPT/HCPCS: 74176; 80048; 80053; 81001; 83605; 83690; 85025; 85027; 87086; 96361; 96374; 96375; J0696; J1170; J1885; J2270; J2405; J7030

== ENCOUNTER 2016-06-07 20:59 | Emergency (ER) | payer SELFPAY ==
[~2016-06-07 20:59] MED LIST changes: -BACT800T5 PO; +HYDR-3516 PO; -IBUP-232 PO
[2016-06-07 21:02] VITALS: BP 150/89; PULSE 90; RESP 16; TEMP 98.1; O2SAT 98
== END 2016-06-07 21:50 | disposition left against medical advice (07) ==
LOC: NED 20:59
DX: Z53.21 Procedure and treatment not carried out due to patient leaving prior to being seen by health care provider (principal)
CPT/HCPCS: 99281

== ENCOUNTER 2016-06-11 14:11 | Emergency (ER) | payer SELFPAY ==
[~2016-06-11] VITALS: Ht 182.9 cm; Wt 75.0 kg
[2016-06-11 14:13] VITALS: BP 138/97; PULSE 70; RESP 17; TEMP 98; O2SAT 99
[2016-06-11] MEDS ORDERED: ONDANSETRON HCL 4 MG/2 ML VIAL IVP ONE (14:45)
[2016-06-11] MEDS ORDERED: SODIUM CHLORIDE 0.9% FLUSH 5 ML FLUSH IVF PRN (14:45)
[2016-06-11] MEDS ORDERED: MORPHINE SULFATE 4 MG/ML INJ IV PUSH ONE ×2 (14:45→19:00)
[2016-06-11] MEDS: SODIUM CHLOR 0.9% 1000 ML INJ 1,000 ML IV SCH ×2 (14:51→15:56)
--- NOTE | 2016-06-11 15:03 | PD ---
HPI Chief Complaint: Abdominal Pain Time Seen by Provider: 14:27 Travel History International Travel<30 days: No Contact w/Intl Traveler<30days: No Traveled to known affect area: No History of Present Illness HPI 35-year-old male with history of renal stones with a left ureteral stent placed in March of last year in [place], here for evaluation of left flank pain, nausea, and vomiting. Patient reports persistent pain since his stent was placed. Pain starts in his left flank radiates to his left lower abdomen and left groin. He has been seen in the emergency department here several times and reports going to [facility] as well. He has been admitted here twice for this and was instructed to follow up with urology as an outpatient. He states he has not done so and has been attempting to, however he has been having difficulty making an appointment. No history of abdominal surgeries. He notices a few drops of blood in his urine. He is unsure if he has been having fever. PFSH Past Medical History Asthma: Yes ( A CHILD) Cancer: No Cardiovascular Problems: No COPD: No Cerebrovascular Accident: No Diminished Hearing: No Endocrine: No Gastrointestinal Disorders: No Genitourinary: Yes (KIDNEY STONES/LEFT KIDNEY STENT) Immune Disorder: No Implanted Vascular Access Dvce: Yes Kidney Stones: Yes Musculoskeletal: No Neurologic: No Psychiatric: No Reproductive: No Respiratory: Yes Radiation Therapy: No Renal Failure: No Past Surgical History AICD: No Arteriovenous Shunt: No Body Medical Devices: Left renal stent. Cardiac Surgery: No Ear Surgery: No Endocrine Surgery: No Eye Surgery: No Genitourinary Surgery: Yes (LEFT KIDNEY STENT Mar 2016) Insulin Pump: No Joint Replacement: No Oral Surgery: No Pacemaker: No Thoracic Surgery: No Other Surgery: Yes (KIDNEYSTONES/LEFT KIDNEY STENT) Social History Alcohol Use: Yes (SOCIALLY) Tobacco Use: No Substance Use: Yes (MARAJUIANA ) Allergies-Medications (Allergen,Severity, Reaction): Coded Allergies: No Known Allergies (Verified , 06/11/16) Reported Meds & Prescriptions Reported Meds & Active Scripts Active Hydrocodone-Acetaminophen 5-325 mg Tab 1 Tab PO Q4H PRN Review of Systems Except as stated in HPI: all other systems reviewed are Neg Physical Exam Narrative GENERAL: Well-developed, well-nourished, comfortable, no acute distress. SKIN: Warm and dry. No Rash. HEAD: Atraumatic. Normocephalic. EYES: Pupils equal and round. No scleral icterus. No injection or drainage. ENT: Mucous membranes pink and moist. CARDIOVASCULAR: Regular rate and rhythm. RESPIRATORY: No accessory muscle use. Clear to auscultation. Breath sounds equal bilaterally. GASTROINTESTINAL: Abdomen soft, nondistended. Mild left lower quadrant tenderness without peritoneal signs. MUSCULOSKELETAL: No obvious deformities. No clubbing. No cyanosis. No edema. Left CVA tenderness. No midline vertebral step-off or tenderness. NEUROLOGICAL: Awake and alert. No obvious cranial nerve deficits. Motor grossly within normal limits. Normal speech. PSYCHIATRIC: Appropriate mood and affect; insight and judgment normal. Data Data Last Documented VS Vital Signs Date Time Temp Pulse Resp B/P Pulse Ox O2 Delivery O2 Flow Rate FiO2 06/11/16 16:32 20 06/11/16 16:02 68 137/76 99 Room Air 06/11/16 14:13 98.0 Orders Complete Blood Count With Diff (06/11/16 14:31) Comprehensive Metabolic Panel (06/11/16 14:31) Urinalysis - C+S If Indicated (06/11/16 14:31) Ct Abd/Pel W Iv Contrast(Rout) (06/11/16 14:31) Iv Access Insert/Monitor (06/11/16 14:31) Ecg Monitoring (06/11/16 14:31) Oximetry (06/11/16 14:31) Morphine Inj (Morphine Inj) (06/11/16 14:45) Ondansetron Inj (Zofran Inj) (06/11/16 14:45) Sodium Chlor 0.9% 1000 Ml Inj (Ns 1000 M (06/11/16 14:31) Sodium Chloride 0.9% Flush (Ns Flush) (06/11/16 14:45) Urine Culture (06/11/16 14:45) Ceftriaxone Inj (Rocephin Inj) (06/11/16 15:45) Iohexol 350 Inj (Omnipaque 350 Inj) (06/11/16 16:18) Labs Laboratory Tests Test 06/11/16 06/11/16 14:35 14:45 White Blood Count 8.7 TH/MM3 Red Blood Count 4.28 MIL/MM3 Hemoglobin 13.1 GM/DL Hematocrit 39.7 % Mean Corpuscular Volume 92.8 FL Mean Corpuscular Hemoglobin 30.7 PG Mean Corpuscular Hemoglobin 33.0 % Concent Red Cell Distribution Width 13.2 % Platelet Count 206 TH/MM3 Mean Platelet Volume 9.2 FL Neutrophils (%) (Auto) 75.2 % Lymphocytes (%) (Auto) 15.7 % Monocytes (%) (Auto) 5.3 % Eosinophils (%) (Auto) 3.3 % Basophils (%) (Auto) 0.5 % Neutrophils # (Auto) 6.5 TH/MM3 Lymphocytes # (Auto) 1.4 TH/MM3 Monocytes # (Auto) 0.5 TH/MM3 Eosinophils # (Auto) 0.3 TH/MM3 Basophils # (Auto) 0.0 TH/MM3 CBC Comment DIFF FINAL Differential Comment Sodium Level 142 MEQ/L Potassium Level 4.3 MEQ/L Chloride Level 106 MEQ/L Carbon Dioxide Level 28.7 MEQ/L Anion Gap 7 MEQ/L Blood Urea Nitrogen 12 MG/DL Creatinine 0.88 MG/DL Estimat Glomerular Filtration 119 ML/MIN Rate Random Glucose 95 MG/DL Calcium Level 10.2 MG/DL Total Bilirubin 0.6 MG/DL Aspartate Amino Transf 12 U/L (AST/SGOT) Alanine Aminotransferase 20 U/L (ALT/SGPT) Alkaline Phosphatase 70 U/L Total Protein 7.3 GM/DL Albumin 4.1 GM/DL Urine Color YELLOW Urine Turbidity CLOUDY Urine pH 8.0 Urine Specific [place] 1.016 Urine Protein 30 mg/dL Urine Glucose (UA) NEG mg/dL Urine Ketones NEG mg/dL Urine Occult Blood MOD Urine Nitrite NEG Urine Bilirubin NEG Urine Urobilinogen LESS THAN 2.0 MG/DL Urine Leukocyte Esterase LARGE Urine RBC /hpf Urine WBC 20 /hpf Urine Amorphous Sediment RARE Urine Mucus FEW /lpf Microscopic Urinalysis Comment CULTURE INDICATED MDM Medical Decision Making Medical Screen Exam Complete: Yes Emergency Medical Condition: Yes Medical Record Reviewed: Yes Differential Diagnosis Pyelonephritis, nephrolithiasis, hydronephrosis, appendicitis, colitis, diverticulitis, cystitis Narrative Course Vital signs are within normal limits. CBC is unremarkable. CMP is unremarkable. UA is cloudy with 30 protein, moderate occult blood, large leukocyte esterase, 20 WBCs. The patient has had similar UAs in the past. Cultures have never grown a bacteria to suggest UTI. Patient was given a dose of Rocephin here. CT abdomen pelvis: CONCLUSION: Double J stent in place on the left. Stone remains in the lower pole of the left kidney. Patient was made aware of all findings. He is resting comfortably after given pain medication. He asked if I could admit him so the urologist could see him here as he has been having difficulty seeing them in their office. I placed a phone call to Tj who knows the patient well. He states that the urologist Dr. Hanks left the patient's ureteral stent in place because it is in good position and really wants the patient to follow up as an outpatient. He is unwilling to admit the patient at this time. I made the patient aware of this. He states he will try to follow-up with the urologist on Sunday. He is stable for discharge home. I will give him a perception for Macrobid. He was informed on when to return to the emergency department. He verbalizes understanding and agreement with plan. Diagnosis Primary Impression: Left flank pain Referrals: Bon Hanks MD 3 days Additional Instructions: Follow-up with Dr. Hanks this week. Return to the emergency room if worsening symptoms or any other concerns. Scripts Nitrofurantoin Monohydrate Macrocrystals (Macrobid)100 Mg Til802 Mg PO BID 7 Days Ref 0 Prov:Carlo Navarrete MD 06/11/16 Disposition: 01 DISCHARGE HOME Condition: Stable Carlo Navarrete MD Jun 11, 2016 15:03
[2016-06-11 15:07] LABS: AUTOMATED NEUTROPHIL # 6.5 TH/MM3 (1.8-7.7); BASOPHIL % 0.5 % (0.0-2.0); EOSINOPHIL # 0.3 TH/MM3 (0-0.4); EOSINOPHIL % 3.3 % (0.0-4.0); HEMATOCRIT 39.7 % (39.0-51.0); HEMO FLAGS DIFF FINAL; LYMPH % 15.7 % (9.0-44.0); LYMPHOCYTE # 1.4 TH/MM3 (1.0-4.8); MEAN CELL VOLUME 92.8 FL (80.0-100.0); MEAN CORPUSCULAR HEMOGLOBIN 30.7 PG (27.0-34.0); MONO % 5.3 % (0.0-8.0); NEUT % 75.2 % (16.0-70.0); PLATELET COUNT 206 TH/MM3 (150-450); RED BLOOD COUNT 4.28 MIL/MM3 (4.50-5.90); RED CELL DISTRIBUTION WIDTH 13.2 % (11.6-17.2); WHITE BLOOD COUNT 8.7 TH/MM3 (4.0-11.0)
[2016-06-11 15:18] VITALS: O2SAT 99
[2016-06-11 15:28] LABS: BLOOD, URINE MOD (NEG); COMMENT (UR) CULTURE INDICATED; CULTURE IF INDICATED CULTURE INDICATED; GLUCOSE,URINE NEG (NEG); KETONE, URINE NEG (NEG); MUCUS URINE FEW /lpf (OCC); NITRITE,URINE NEG (NEG); URINE COLOR YELLOW (YELLW/STRAW)
[2016-06-11 15:36] LABS: ANION GAP 7 MEQ/L (5-15); AST (GOT) 12 U/L (15-37); BICARBONATE 28.7 MEQ/L (21.0-32.0); BLOOD UREA NITROGEN 12 MG/DL (7-18); CHLORIDE 106 MEQ/L (98-107); GLOMERULAR FILTRATION RATE 119 ML/MIN (>89); POTASSIUM 4.3 MEQ/L (3.5-5.1); SODIUM (NA) 142 MEQ/L (136-145)
[2016-06-11 15:38] LABS: ALKALINE PHOSPHATASE 70 U/L (45-117); ALT (GPT) 20 U/L (12-78); TOTAL BILIRUBIN ADULT 0.6 MG/DL (0.2-1.0)
[2016-06-11] MEDS ORDERED: cefTRIAXone INJ 1,000 MG in SODIUM CHLORIDE 0.9% INJ 100 ML IV ONE (15:45)
[2016-06-11 16:02] VITALS: BP 137/76; PULSE 68; RESP 20; O2SAT 99
[2016-06-11] MEDS ORDERED: IOHEXOL 350 MG/ML 10 ML VIAL (for RAD DIAG) IV ONE (16:18)
[2016-06-11 16:32] VITALS: RESP 20
--- NOTE | 2016-06-11 16:55 | RADRPT ---
EXAM DATE/TIME: 06/11/2016 16:11 [facility] COMPARISON: CT ABDOMEN & PELVIS W/O CONTRAST, June 01, 2016, 15:38. INDICATIONS : Low abdomen pain; genital pain. IV CONTRAST: 100 cc Omnipaque 350 (iohexol) IV ORAL CONTRAST: No oral contrast ingested. RADIATION DOSE: 9.96 CTDIvol (mGy) MEDICAL HISTORY : Renal calculi. SURGICAL HISTORY : None. ENCOUNTER: Initial ACUITY: 1 day PAIN SCALE: 5/10 LOCATION: lower quadrant TECHNIQUE: Volumetric scanning of the abdomen and pelvis was performed. Using automated exposure control and ad justment of the mA and/or kV according to patient size, radiation dose was kept as low as reasonably achievable to obtain optimal diagnostic quality images. FINDINGS: The lung bases are clear. The liver is free of focal defects. Double J stent is in good position on the left. There are no residual calcifications evident along the stent. The right kidney is unremarkable. Region of the cecum and terminal ileum appears normal. There are no inflammatory changes evident. In the pelvis, bladder, prostate, seminal vesicles are unremarkable. CONCLUSION: Double J stent in place on the left. Stone remains in the lower pole of the left kidney. Chris Rubin MD FACR on June 11, 2016 at 16:40 Board Certified Radiologist. This report was verified electronically.
[2016-06-11] MEDS ORDERED: MACR100C2 PO (17:28)
== END 2016-06-11 19:20 | disposition home or self-care (01) ==
LOC: NEPA 14:11
DX: R10.9 Unspecified abdominal pain (principal); F12.90 Cannabis use, unspecified, uncomplicated
CPT/HCPCS: 74177; 80053; 81001; 85025; 87086; 96361; 96365; 96375; 99284; J0696; J2270; J2405; J7030; Q9967

== ENCOUNTER 2016-06-26 19:29 | Emergency (ER) | payer SELFPAY ==
[~2016-06-26] VITALS: Ht 182.9 cm; Wt 77.6 kg
[~2016-06-26 19:29] MED LIST changes: +MACR100C2 PO
[2016-06-26 20:00] VITALS: BP 130/87; PULSE 107; RESP 16; TEMP 100.2; O2SAT 98
[2016-06-26 20:43] LABS: BLOOD, URINE LARGE (NEG); GLUCOSE,URINE NEG (NEG); KETONE, URINE NEG (NEG); NITRITE,URINE NEG (NEG)
[2016-06-26 20:55] LABS: URINE COLOR AMBER (YELLW/STRAW)
[2016-06-26 20:56] LABS: COMMENT (UR) CULT NOT INDICATED; CULTURE IF INDICATED CULT NOT INDICATED; RBC, URINE 100-200 /hpf (0-3)
[2016-06-26] MEDS ORDERED: HYDROmorphone HCL PF 1 MG/ML VIAL IV PUSH ONE (21:30)
[2016-06-26] MEDS ORDERED: ONDANSETRON HCL 4 MG/2 ML VIAL IV PUSH ONE (21:30)
[2016-06-26] MEDS ORDERED: SODIUM CHLOR 0.9% 1000 ML INJ 1,000 ML IV ONE (21:30)
[2016-06-26] MEDS ORDERED: cefTRIAXone INJ 1,000 MG in SODIUM CHLORIDE 0.9% INJ 100 ML IV ONE (21:45)
--- NOTE | 2016-06-26 21:45 | PD ---
HPI Chief Complaint: Flank/Kidney Pain Time Seen by Provider: 21:24 Travel History International Travel<30 days: No Contact w/Intl Traveler<30days: No Traveled to known affect area: No History of Present Illness HPI This 35-year-old male is complaining of left flank pain and lower abdominal pain. He has been having ongoing problems with kidney stones. He's had a stent in his left ureter for over a month. He's been in the ER multiple times and has had several scans. He had a scan done on the shows the stent in place. He is having some left flank pain and also some pain in his testicles. He has not been taking any pain medication. He is not currently on any antibiotics. PFSH Past Medical History Asthma: Yes ( A CHILD) Cancer: No Cardiovascular Problems: No COPD: No Cerebrovascular Accident: No Diminished Hearing: No Endocrine: No Gastrointestinal Disorders: No Genitourinary: Yes (KIDNEY STONES/LEFT KIDNEY STENT) Immune Disorder: No Implanted Vascular Access Dvce: Yes Kidney Stones: Yes Musculoskeletal: No Neurologic: No Psychiatric: No Reproductive: No Respiratory: Yes Radiation Therapy: No Renal Failure: No Influenza Vaccination: No Past Surgical History AICD: No Arteriovenous Shunt: No Body Medical Devices: Left renal stent. Cardiac Surgery: No Ear Surgery: No Endocrine Surgery: No Eye Surgery: No Genitourinary Surgery: Yes (LEFT KIDNEY STENT Mar 2016) Insulin Pump: No Joint Replacement: No Oral Surgery: No Pacemaker: No Thoracic Surgery: No Other Surgery: Yes (KIDNEYSTONES/LEFT KIDNEY STENT) Social History Alcohol Use: No Tobacco Use: No Substance Use: Yes (MARAJUIANA ) Allergies-Medications (Allergen,Severity, Reaction): Coded Allergies: No Known Allergies (Verified , 06/26/16) Reported Meds & Prescriptions Reported Meds & Active Scripts Active No Active Prescriptions or Reported Medications Review of Systems General / Constitutional: Positive: Fever, Chills Eyes: No: Diploplia, Blurred Vision Cardiovascular: No: Chest Pain or Discomfort, Palpitations Respiratory: No: Cough Gastrointestinal: Positive: Nausea Genitourinary: Positive: Pelvic Pain, Flank Pain Skin: No Rash, No Itching Physical Exam Narrative GENERAL: [-] Well-developed male SKIN: Warm and dry. HEAD: Atraumatic. Normocephalic. EYES: Pupils equal and round. No scleral icterus. No injection or drainage. ENT: No nasal bleeding or discharge. Mucous membranes pink and moist. NECK: Trachea midline. No JVD. CARDIOVASCULAR: Regular rate and rhythm. No murmur appreciated. RESPIRATORY: No accessory muscle use. Clear to auscultation. Breath sounds equal bilaterally. GASTROINTESTINAL: Abdomen soft, non-tender, nondistended. Hepatic and splenic margins not palpable. There is some left CVA tenderness testicles are not tender to palpation MUSCULOSKELETAL: No obvious deformities. No clubbing. No cyanosis. No edema. NEUROLOGICAL: Awake and alert. No obvious cranial nerve deficits. Motor grossly within normal limits. Normal speech. PSYCHIATRIC: Appropriate mood and affect; insight and judgment normal. Data Data Last Documented VS Vital Signs Date Time Temp Pulse Resp B/P Pulse Ox O2 Delivery O2 Flow Rate FiO2 06/26/16 22:44 18 06/26/16 21:15 06/26/16 20:00 100.2 107 98 Room Air Orders Urinalysis - C+S If Indicated (06/26/16 20:20) Complete Blood Count With Diff (06/26/16 21:30) Basic Metabolic Panel (Bmp) (06/26/16 21:30) Sodium Chlor 0.9% 1000 Ml Inj (Ns 1000 M (06/26/16 21:30) Ondansetron Inj (Zofran Inj) (06/26/16 21:30) Hydromorphone Pf Inj (Dilaudid Pf Inj) (06/26/16 21:30) Blood Culture (06/26/16 21:37) Lactic Acid Sepsis Protocol (06/26/16 21:37) Ceftriaxone Inj (Rocephin Inj) (06/26/16 21:45) Labs Laboratory Tests Test 06/26/16 06/26/16 06/26/16 20:16 21:38 22:03 Urine Color MARISA Urine Turbidity MARKED Urine pH 7.0 Urine Specific [place] 1.018 Urine Protein 30 mg/dL Urine Glucose (UA) NEG mg/dL Urine Ketones NEG mg/dL Urine Occult Blood LARGE Urine Nitrite NEG Urine Bilirubin NEG Urine Leukocyte Esterase SMALL Urine RBC 100-200 /hpf Urine WBC 3-5 /hpf Urine Bacteria NONE /hpf Microscopic Urinalysis Comment CULT NOT INDICATED White Blood Count 8.4 TH/MM3 Red Blood Count 4.45 MIL/MM3 Hemoglobin 13.7 GM/DL Hematocrit 41.2 % Mean Corpuscular Volume 92.5 FL Mean Corpuscular Hemoglobin 30.9 PG Mean Corpuscular Hemoglobin 33.4 % Concent Red Cell Distribution Width 13.3 % Platelet Count 213 TH/MM3 Mean Platelet Volume 9.1 FL Neutrophils (%) (Auto) 77.1 % Lymphocytes (%) (Auto) 6.7 % Monocytes (%) (Auto) 13.5 % Eosinophils (%) (Auto) 2.0 % Basophils (%) (Auto) 0.7 % Neutrophils # (Auto) 6.4 TH/MM3 Lymphocytes # (Auto) 0.6 TH/MM3 Monocytes # (Auto) 1.1 TH/MM3 Eosinophils # (Auto) 0.2 TH/MM3 Basophils # (Auto) 0.1 TH/MM3 CBC Comment DIFF FINAL Differential Comment Sodium Level 140 MEQ/L Potassium Level 4.3 MEQ/L Chloride Level 106 MEQ/L Carbon Dioxide Level 27.1 MEQ/L Anion Gap 7 MEQ/L Blood Urea Nitrogen 15 MG/DL Creatinine 0.79 MG/DL Estimat Glomerular Filtration 135 ML/MIN Rate Random Glucose 88 MG/DL Calcium Level 10.0 MG/DL Lactic Acid Level 1.1 mmol/L [facility] Medical Decision Making Medical Screen Exam Complete: Yes Emergency Medical Condition: Yes Medical Record Reviewed: Yes Differential Diagnosis Differential includes UTI, renal colic, Narrative Course Urine does show red cells. This only a few white cells. White count is normal. Patient did have a low-grade temperature. He'll be released with prescription for Keflex and Percocet patient had a CT scan last week and I don' t think another is warranted Diagnosis Primary Impression: Kidney stone on left side Scripts Cephalexin (Keflex)500 Mg Mdi262 Mg PO Q6H #28 CAP Ref 0 Prov:Tommy Gallego MD 06/26/16 Oxycodone-Acetaminophen (Percocet)7.5-325 mg Tab1 Tab PO Q4H PRN (PAIN) #30 TAB Ref 0 Prov:Tommy Gallego MD 06/26/16 Disposition: 01 DISCHARGE HOME Condition: Stable Tommy Gallego MD Jun 26, 2016 21:45
[2016-06-26 22:22] LABS: AUTOMATED NEUTROPHIL # 6.4 TH/MM3 (1.8-7.7); BASOPHIL # 0.1 TH/MM3 (0-0.2); BASOPHIL % 0.7 % (0.0-2.0); EOSINOPHIL # 0.2 TH/MM3 (0-0.4); HEMATOCRIT 41.2 % (39.0-51.0); HEMO FLAGS DIFF FINAL; LYMPH % 6.7 % (9.0-44.0); LYMPHOCYTE # 0.6 TH/MM3 (1.0-4.8); MEAN CELL VOLUME 92.5 FL (80.0-100.0); MEAN CORPUSCULAR HEMOGLOBIN 30.9 PG (27.0-34.0); MEAN CORPUSCULAR HGB CONC 33.4 % (32.0-36.0); MONO % 13.5 % (0.0-8.0); NEUT % 77.1 % (16.0-70.0); PLATELET COUNT 213 TH/MM3 (150-450); RED BLOOD COUNT 4.45 MIL/MM3 (4.50-5.90); RED CELL DISTRIBUTION WIDTH 13.3 % (11.6-17.2); WHITE BLOOD COUNT 8.4 TH/MM3 (4.0-11.0)
[2016-06-26 22:30] LABS: POTASSIUM 4.3 MEQ/L (3.5-5.1)
[2016-06-26 22:33] LABS: BICARBONATE 27.1 MEQ/L (21.0-32.0)
[2016-06-26] MEDS ORDERED: CEPH-460 PO (22:50)
[2016-06-26] MEDS ORDERED: PERC7.5T13 PO (22:50)
[2016-06-26 23:49] VITALS: BP 130/80; PULSE 95; RESP 18; TEMP 99.4; O2SAT 98
[2016-06-27] MEDS ORDERED: NAPR500 PO (11:03)
== END 2016-06-26 23:51 | disposition home or self-care (01) ==
LOC: PHED 19:29
DX: N20.0 Calculus of kidney (principal); R50.9 Fever, unspecified; N50.819 Testicular pain, unspecified; Z87.442 Personal history of urinary calculi; Z87.448 Personal history of other diseases of urinary system; Z87.09 Personal history of other diseases of the respiratory system
CPT/HCPCS: 80048; 81001; 83605; 85025; 87040; 96365; 96366; 96375; 99284; J0696; J1170; J2405; J7030

== ENCOUNTER 2016-06-27 09:44 | Emergency (ER) | payer SELFPAY ==
[~2016-06-27 09:44] MED LIST changes: +CEPH-460 PO; +PERC7.5T13 PO
[2016-06-27 09:47] VITALS: BP 139/90; PULSE 73; RESP 12; TEMP 98.4; O2SAT 96
[2016-06-27] MEDS ORDERED: ONDANSETRON HCL 4 MG/2 ML VIAL ONE (10:14)
[2016-06-27] MEDS ORDERED: HYDROmorphone HCL PF 1 MG/ML VIAL IV PUSH ONE (10:15)
[2016-06-27] MEDS ORDERED: ONDANSETRON HCL 4 MG/2 ML VIAL IV ONE (10:15)
[2016-06-27] MEDS ORDERED: KETOROLAC TROMETHAMINE 30 MG/ML (IVP) VIAL IV PUSH ONE (10:15)
--- NOTE | 2016-06-27 10:20 | PD ---
HPI Chief Complaint: Flank/Kidney Pain Time Seen by Provider: 09:52 Travel History International Travel<30 days: No Contact w/Intl Traveler<30days: No Traveled to known affect area: No History of Present Illness HPI 35-year-old man with a history of kidney stones who presents to the emergency department for left flank pain. He had a stent placed in his left ureter in March in [place]. He is had multiple ED visits and hospitalizations for left flank pain. He's had 3 CT scans on summer, June 01, June 11 at all sure the stent being good position. There also remains a stone in the lower pole of the left kidney. He was seen in the emergency department last night. He was given a prescription for pain medicine and antibiotics. Patient reports he's had an infection in the stent that hasn't gotten better over 4 months. All of his urine cultures have been negative. Patient states he went to Dr. Fabienne Toney's office this morning as instructed and the nursing staff there told him to come back to the emergency department. He is complaining of pain chills and vomiting. History Past Medical History Narrative Medical Kidney stones Tetanus Vaccination: < 5 Years Social History Alcohol Use: No Tobacco Use: No Allergies-Medications (Allergen,Severity, Reaction): Coded Allergies: No Known Allergies (Verified , 06/27/16) Reported Meds & Prescriptions Reported Meds & Active Scripts Active Keflex (Cephalexin) 500 Mg Cap 500 Mg PO Q6H Percocet (Oxycodone-Acetaminophen) 7.5-325 mg Tab 1 Tab PO Q4H PRN Review of Systems Except as stated in HPI: all other systems reviewed are Neg Physical Exam Narrative GENERAL: 35-year-old man, appears uncomfortable, left flank pain. SKIN: Warm and dry. HEAD: Atraumatic. Normocephalic. CARDIOVASCULAR: Regular rate and rhythm. No murmur appreciated. RESPIRATORY: No accessory muscle use. Clear to auscultation. Breath sounds equal bilaterally. GASTROINTESTINAL: Abdomen soft, non-tender, nondistended. Hepatic and splenic margins not palpable. MUSCULOSKELETAL: No obvious deformities. No clubbing. No cyanosis. No edema. NEUROLOGICAL: Awake and alert. No obvious cranial nerve deficits. Motor grossly within normal limits. Normal speech. PSYCHIATRIC: Appropriate mood and affect; insight and judgment normal. Data Data Last Documented VS Vital Signs Date Time Temp Pulse Resp B/P Pulse Ox O2 Delivery O2 Flow Rate FiO2 06/27/16 09:55 79 22 06/27/16 09:47 98.4 139/90 96 Room Air Orders Iv Access Insert/Monitor (06/27/16 10:04) Hydromorphone Pf Inj (Dilaudid Pf Inj) (06/27/16 10:15) Ketorolac Inj (Toradol Inj) (06/27/16 10:15) Ondansetron Inj (Zofran Inj) (06/27/16 10:15) Ondansetron Inj (Zofran Inj) (06/27/16 10:14) MDM Medical Decision Making Medical Screen Exam Complete: Yes Emergency Medical Condition: Yes Differential Diagnosis Left renal stent, obstruction, renal lithiasis, other Narrative Course medical decision making 35-year-old man with recurrent left flank pain related to an indwelling ureteral stent. Multiple previous images showed the stent to be in good position with some persistent stone disease in the left kidney. Symptoms seem to be ongoing. He apparently went to Dr. Yen's office this morning and they sent him back to the emergency department here. He did not fill his prescriptions for pain medicine or antibiotics since being seen in the emergency department last night. FINAL: Spoke with Dr. Hanks. States patient needs to apply for patient assistance. He does note that patient assistance won't pay for [facility] at [facility], that is Dr. Sortoon Dr. Damon. I spoke with case management. We'll have patient follow-up with patient assistance. He has paperwork with him. I will do mandatory referral for initial evaluation with Dr. Sorto. Diagnosis Primary Impression: Left flank pain Referrals: Yousuf Sorto DO 1 week Additional Instructions: Follow-up with the [facility] at the first available appointment. Take pain medicine and antibiotics as previously prescribed. Follow up with patient assistance office to arrange for patient assistance. Return to the emergency department for any new or worsening symptoms. Med/Other Pt SpecificInfo: No Change to Meds Disposition: 01 DISCHARGE HOME Condition: Stable Chaz Yap MD Jun 27, 2016 10:20
[2016-06-27 11:00] VITALS: BP 123/76; PULSE 70; RESP 12; O2SAT 99
[2016-06-27] MEDS ORDERED: NAPR500 PO (11:03)
== END 2016-06-27 12:32 | disposition home or self-care (01) ==
LOC: NEPA 09:44
DX: R10.9 Unspecified abdominal pain (principal); R68.83 Chills (without fever); R11.10 Vomiting, unspecified; Z87.442 Personal history of urinary calculi
CPT/HCPCS: 96374; 96375; 99283; J1170; J1885; J2405